=== PATIENT | male | born 1990 | race Two or more races ===

== ENCOUNTER 2017-03-18 16:20 | Emergency (ER) | payer SELFPAY ==
[~2017-03-18] VITALS: Ht 170.2 cm; Wt 95.3 kg
[2017-03-18 16:27] VITALS: BP 126/89
== END 2017-03-18 17:12 | disposition home or self-care (01) ==
LOC: ER 16:24
DX: M25.571 Pain in right ankle and joints of right foot (principal); M54.5 Low back pain; F41.9 Anxiety disorder, unspecified; Z88.5 Allergy status to narcotic agent; Z88.6 Allergy status to analgesic agent; G89.29 Other chronic pain; W01.0XXA Fall on same level from slipping, tripping and stumbling without subsequent striking against object, initial encounter; Y92.89 Other specified places as the place of occurrence of the external cause; Y93.89 Activity, other specified; Y99.8 Other external cause status
CPT/HCPCS: 99282; A4606; Z7610

== ENCOUNTER 2020-12-11 14:38 | Emergency (ER) | payer OTHER ==
[~2020-12-11] VITALS: Ht 170.2 cm; Wt 88.9 kg
[2020-12-11 14:53] VITALS: BP 128/60
[2020-12-11] MEDS ORDERED: oxyCODONE/APAP (5/325 MG) 1 UDTAB TABLET PO ONE (15:00)
[2020-12-11] MEDS ORDERED: oxyCODONE/APAP (5/325 MG) 1 UDTAB TABLET ONE (15:09)
[2020-12-11] MEDS ORDERED: OXYC-128 PO (16:01)
--- NOTE | 2020-12-11 16:15 | NUR ---
Patient discharged to home in stable condition. Written and verbal after care instructions given. Patient verbalizes understanding of instruction. Put knee immobilizer , and crutches given, patient will foollow pcp.
== END 2020-12-11 16:30 | disposition home or self-care (01) ==
LOC: ER 14:38
DX: S83.8X2A Sprain of other specified parts of left knee, initial encounter (principal); G89.29 Other chronic pain; M54.9 Dorsalgia, unspecified; F31.9 Bipolar disorder, unspecified; F41.9 Anxiety disorder, unspecified; F20.9 Schizophrenia, unspecified; F17.200 Nicotine dependence, unspecified, uncomplicated; Z98.890 Other specified postprocedural states; Z88.6 Allergy status to analgesic agent; Z79.899 Other long term (current) drug therapy; W18.2XXA Fall in (into) shower or empty bathtub, initial encounter; Y93.89 Activity, other specified; Y92.89 Other specified places as the place of occurrence of the external cause; Y99.8 Other external cause status
CPT/HCPCS: 73564-TC